=== PATIENT | female | born 1960 | race Caucasian/White ===

== ENCOUNTER 2016-05-26 10:01 | Emergency (ER) | payer MEDICAID ==
[2016-05-26] MEDS ORDERED: LORazepam 0.5 MG Tab ONE (10:24)
[2016-05-26 10:33] VITALS: BP 147/64
--- NOTE | 2016-05-26 10:40 | EDM.PDOC ---
ED HPI GENERAL MEDICAL PROBLEM - General Time Seen by Provider: 05/26/16 10:05 Source of Information: Reports: Patient History Limitations: Reports: No limitations - History of Present Illness INITIAL COMMENTS - FREE TEXT/NARRATIVE: Pt was brought in by ambulance, as she was found outside the house wandering in the cold. Pt has had severe major depression for several years now. she has possible sczioaffective disorder. Mother who is here in the emergency room, who is her animal care service worker, claims that patient has not taken her ativan for the past 5 days now. The reason being, she has run out of the medications, and the pharmacy is not able to refill her medications as her prescription is out of town. Her psychiatrist who prescribes her ativan is from [place], and has been doing this for atleast 10 years that I know of. Pt has been in and out of inpatient psych care. Pt is not in danger of harming herself or other around. No suicidal ideation or threat made. Pt used to get her tramadol for her pain and oxybutrin from who is retired now and has run out of these medications too. She has been having chronic issue wiht maintaining healthy body weight due to her poor eating habits , and mother claims that it is hard to get her to eat anything, which has been struggle for years now. - Related Data Allergies Allergy/AdvReac Type Severity Reaction Status Date / Time lactose Allergy Diarrhea Verified 05/26/16 11:09 Home Meds: Home Meds LORazepam [Ativan] 2 mg PO Q6H 01/16/13 [History] Multivitamin [Multi Vitamin Daily] 1 each PO DAILY 01/16/13 [History] Oxybutynin Chloride [Oxybutynin Chloride ER] 15 mg PO DAILY 01/16/13 [History] Tretinoin [Retin-A] 20 gm TP DAILY 01/16/13 [History] Vit B Cmplx 3/Fa/Vit C/Biotin [Naomi-Zaina Rx Tablet] 1 each PO ACBREAKFAST [History] traMADol [Ultram] 50 tab PO Q4HR 01/16/13 [History] Social & Family History - Alcohol Use Days Per Week of Alcohol Use: 0 - Recreational Drug Use Recreational Drug Use: No - Living Situation & Occupation Living situation: Reports: single, with family (lives with parents) Occupation: unemployed ED ROS GENERAL - Review of Systems Review Of Systems: See Below Constitutional: Reports: weight loss. Denies: fever, chills HEENT: Denies: Ear discharge, Ear pain, Sinus problem, Throat pain Respiratory: Denies: Shortness of Breath, Cough, Sputum, Hemoptysis Cardiovascular: Denies: Chest pain, Lightheadedness GI/Abdominal: Denies: Anorexia, Nausea, Vomiting : Denies: dysuria, pain, urinary retention Musculoskeletal: Denies: neck pain, shoulder pain, joint pain, joint swelling Skin: Denies: jaundice, bruising, pruritis, rash Psychiatric: Reports: Anxiety, Confusion. Denies: Agitation, Depression, Hallucinations, Suicidal ideation Hematologic/Lymphatic: Denies: anemia, easy bleeding ED EXAM, GENERAL - Physical Exam Exam: See Below Exam Limited By: No limitations General Appearance: alert, anxious, cachetic (from chronic malnourishment) Ear Exam: bilateral ear: auricle normal, canal normal, TM normal Nose: normal inspection, normal mucosa, no blood Throat/Mouth: Normal inspection, Normal lips, Normal teeth, Normal gums, Normal oropharynx, Normal voice, No airway compromise Head: atraumatic, normocephalic Neck: normal inspection, supple, non-tender, full range of motion Respiratory/Chest: no respiratory distress, lungs clear, normal breath sounds, no accessory muscle use, chest non-tender Cardiovascular: normal peripheral pulses, regular rate, rhythm, no edema, no gallop, no JVD, no murmur, no rub Peripheral Pulses: 2+: carotid (L), carotid (R), radial (L), radial (R) GI/Abdominal: normal bowel sounds, soft, non tender, no organomegaly, no distention, no abnormal bruit, no mass Neurological: alert, oriented, normal reflexes, no motor/sensory deficits Psychiatric: normal affect, anxious, other (Delusional taughts. No hallucinations. There is flight of taughts and tangential speech) Course - Vital Signs Text/Narrative:: Apparently patient has not taken her ativan for the past 5 days now as her prescription has not been filled. She has been psychotic, with delusion taught. She always has had psychotic behaviour and has been delusional for a long time. Parents do want to take care of her at home. Pt does have chronic cachexia and underweight form her poor eating habit. I have tried to get her on megace to see if that will help with her appetite. Her CMP shows slightly decreased potassium at 3.1, advised bananas and apples. Her CBC shows white count of 16 and her UA show 5 WBC, she does have mild UTI symptoms, hence started her on Cipro 250mg BID for 1 wks. Pt has been resistant to medication changes for a long time. She has trust in her psychiatirst in [place]. Apparently this might not work, if she cannot get the script from him anymore.I have discussed this with her mother during the last visit that they could try who does telemedicine psych care here form the clinic and see if he could be of any help. Last Recorded V/S: Last Vital Signs Temp Pulse 80 05/26/16 10:32 Resp 18 05/26/16 10:32 BP 147/64 H 05/26/16 10:32 Pulse Ox 100 05/26/16 10:32 - Orders/Labs/Meds Labs: Laboratory Tests 05/26/16 05/26/16 05/26/16 Range/Units 10:40 10:40 11:26 WBC 16.3 H D (4.0-11.0) K/uL RBC 3.79 L (3.80-5.80) M/uL Hgb 12.2 (11.5-16.5) g/dL Hct 37.6 (37.0-47.0) % MCV 99 H (76-96) fL MCH 32.2 H (27.0-32.0) pg MCHC 32.4 (31.0-35.0) g/dL RDW 15.2 (11.0-16.0) % Plt Count 604 H* D (150-500) K/uL MPV 9.1 (6.0-10.0) fL Neut % (Auto) 88.9 H (45.0-70.0) % Lymph % (Auto) 8.0 L (20.0-40.0) % [place] % (Auto) 2.9 L (3.0-10.0) % Eos % (Auto) 0.1 L (1.0-5.0) % Baso % (Auto) 0.1 (0.0-0.5) % Neut # 14.49 H (2.00-7.50) K/uL Lymph # 1.30 L (1.50-4.00) K/uL [place] # 0.48 (0.20-0.80) K/uL Eos # 0.01 L (0.04-0.40) K/uL Baso # 0.01 L (0.02-0.10) K/uL Sodium 141 (136-145) mmol/L Potassium 3.1 L D (3.5-5.1) mmol/L Chloride 97 L (98-107) mmol/L Carbon Dioxide 27.2 (21.0-32.0) mmol/L Anion Gap 19.9 H (5.0-15.0) mmol/L BUN 36 H (8-26) mg/dL Creatinine 0.88 (0.55-1.02) mg/dL Est Cr Clr Drug Dosing TNP Estimated GFR (MDRD) > 60 (>60) MLS/MIN BUN/Creatinine Ratio 40.9 H (6-25) Glucose 160 H (74-100) mg/dL Calcium 9.5 (8.5-10.1) mg/dL Total Bilirubin 0.7 D (0.0-1.0) mg/dL AST 19 (15-37) U/L ALT 18 (12-78) U/L Alkaline Phosphatase 107 (46-116) U/L Total Protein 7.7 (6.4-8.2) g/dL Albumin 3.8 (3.4-5.0) g/dL Globulin 3.9 (2.2-4.2) g/dL Albumin/Globulin Ratio 1.0 (0.8-2.0) Urine Color Yellow Urine Appearance Slightly cloudy (CLEAR) Urine pH 6.0 (5.0-8.0) Ur Specific [place] 1.025 (1.003-1.030) Urine Protein 30 H (NEGATIVE) mg/dL Urine Glucose (UA) Negative (NEGATIVE) mg/dL Urine Ketones 40 H (NEGATIVE) mg/dL Urine Occult Blood Moderate H (NEGATIVE) Urine Nitrite Negative (NEGATIVE) Urine Bilirubin Small H (NEGATIVE) Urine Urobilinogen 0.2 (0.2-1.0) E.U./dL Ur Leukocyte Esterase Trace H (NEGATIVE) Urine RBC 5-10 H /HPF Urine WBC 0-5 H /HPF Ur Squamous Epith Cells Few /HPF Urine Bacteria Few /HPF Meds: Medications Discontinued Medications Generic Name Dose Route Start Last Admin Trade Name Timothy PRN Reason Stop Dose Admin Lorazepam Confirm 05/26/16 10:24 05/26/16 10:31 Ativan Administered 05/26/16 10:25 2 mg Dose Administration 2 mg .ROUTE .STK-MED ONE Departure - Departure Time of Disposition: 12:15 Disposition: Home, Self-Care 01 Condition: fair Clinical Impression: Psychosis, paranoid - Problem List & Annotations (1) Anxiety SNOMED Code(s): 06833656 Code(s): F41.9 - ANXIETY DISORDER, UNSPECIFIED Status: Acute Current Visit: No (2) Psychosis, paranoid SNOMED Code(s): 840927264 Code(s): F22 - DELUSIONAL DISORDERS Status: Acute Current Visit: Yes - Problem List Review Problem List Initiated/Reviewed/Updated: Yes - Assessment/Plan Assessment:: Psychosis Plan: Apparently patient has not taken her ativan for the past 5 days now as her prescription has not been filled. She has been psychotic, with delusion taught. She always has had psychotic behaviour and has been delusional for a long time. Parents do want to take care of her at home. Pt does have chronic cachexia and underweight form her poor eating habit. I have tried to get her on megace to see if that will help with her appetite. Her CMP shows slightly decreased potassium at 3.1, advised bananas and apples. Her CBC shows white count of 16 and her UA show 5 WBC, she does have mild UTI symptoms, hence started her on Cipro 250mg BID for 1 wks.Also I have refilled her ativan 2mg q 6 hrs for her for 1 month. Pt has been resistant to medication changes for a long time. She has trust in her psychiatirst in [place]. Apparently this might not work, if she cannot get the script from him anymore.I have discussed this with her mother during the last visit that they could try who does telemedicine psych care here form the clinic and see if he could be of any help.
== END 2016-05-26 12:30 | disposition home or self-care (01) ==
LOC: LB.ED 10:01
DX: F22 Delusional disorders (principal); Z91.09 Other allergy status, other than to drugs and biological substances; Z79.899 Other long term (current) drug therapy
CPT/HCPCS: 36415; 80053; 81001; 85025; 99283; 99285; A9270

== ENCOUNTER 2016-05-27 10:00 | Emergency (ER) | payer MEDICAID ==
--- NOTE | 2016-05-27 11:21 | EDM.PDOC ---
ED HPI GENERAL MEDICAL PROBLEM - General Stated Complaint: STOMACHE PAIN Time Seen by Provider: 05/27/16 10:35 Source of Information: Reports: Patient History Limitations: Reports: No limitations - History of Present Illness INITIAL COMMENTS - FREE TEXT/NARRATIVE: Pt was just seen yesterday in the emergency room. She was discharged home on megace for her anorexia and refilled her ativan for her anxiety with psychosis. Pt is here today as she has been having abdominal pain since last night. She claims it cramps all over the abdomen. and her rectum hurts. No weakness. no fever or chills. No nausea or vomiting. No abdominal bloating. Mother called ambulance as she was complaining of abdominal pain and cramps. Pt brought by ambulance into the emergency room. Vitals are stable at this time. - Related Data Allergies Allergy/AdvReac Type Severity Reaction Status Date / Time lactose Allergy Diarrhea Verified 05/26/16 11:09 Home Meds: Home Meds LORazepam [Ativan] 2 mg PO Q6H 01/16/13 [History] Multivitamin [Multi Vitamin Daily] 1 each PO DAILY 01/16/13 [History] Oxybutynin Chloride [Oxybutynin Chloride ER] 15 mg PO DAILY 01/16/13 [History] Tretinoin [Retin-A] 20 gm TP DAILY 01/16/13 [History] Vit B Cmplx 3/Fa/Vit C/Biotin [Naomi-Zaina Rx Tablet] 1 each PO ACBREAKFAST [History] traMADol [Ultram] 50 tab PO Q4HR 01/16/13 [History] Social & Family History - Alcohol Use Days Per Week of Alcohol Use: 0 - Recreational Drug Use Recreational Drug Use: No - Living Situation & Occupation Living situation: Reports: single, with family (lives with parents) Occupation: unemployed ED ROS GENERAL - Review of Systems Review Of Systems: See Below Constitutional: Denies: fever, chills, weakness HEENT: Denies: Rhinitis, Throat pain, Throat swelling Respiratory: Denies: Shortness of Breath, Cough, Sputum Cardiovascular: Denies: Chest pain, Lightheadedness GI/Abdominal: Reports: Abdominal pain. Denies: Nausea, Vomiting : Denies: discharge, dysuria Musculoskeletal: Denies: joint pain, joint swelling Skin: Denies: pruritis, rash Neurological: Reports: Weakness. Denies: Dizziness, Headache Psychiatric: Reports: Agitation, Anxiety, Other (there is delusional and paronia ). Denies: Homicidal ideation, Suicidal ideation ED EXAM, GENERAL - Physical Exam Exam: See Below Exam Limited By: No limitations General Appearance: alert, WD/WN, no apparent distress, other (agitated) Eye Exam: bilateral eye: EOMI, PERRL Ears: normal external exam, normal canal, hearing grossly normal, normal TMs Ear Exam: bilateral ear: auricle normal, canal normal, TM normal Nose: normal inspection, normal mucosa, no blood Throat/Mouth: Normal inspection, Normal lips, Normal teeth, Normal gums, Normal oropharynx, Normal voice, No airway compromise Head: atraumatic, normocephalic Neck: normal inspection, supple, non-tender, full range of motion Respiratory/Chest: no respiratory distress, lungs clear, normal breath sounds, no accessory muscle use, chest non-tender Cardiovascular: normal peripheral pulses, regular rate, rhythm, no edema, no gallop, no JVD, no murmur, no rub GI/Abdominal: normal bowel sounds, soft, no organomegaly, no distention, no abnormal bruit, no mass, tender (Tender all over abdomen. With calming patient down, When I exam most of the tenderness over the abdomen has resolved.) Extremities: normal inspection, normal range of motion, non-tender, normal capillary refill, no pedal edema Neurological: alert, oriented, CN II-XII intact, normal cognition, normal gait, normal reflexes, no motor/sensory deficits Psychiatric: normal affect, anxious Skin Exam: Warm, Intact Course - Vital Signs Text/Narrative:: I have examined patient, clinical exam is normal. She does have her psychosis and paranoid behaviour. Suspicious about every one around, which has not been new with this patient. She has had abdominal pain and cramps on and off for a long time. She has been on tramadol for the same reason , which was started by Dr. Ugalde. Apparently pt and her mother are concerned that there is some thing going on in her abdomen. Hence I did agree and get CT scan of abdomen and pelvis done today. No acute pathology seen other than significant stool impaction in the rectum. hence rectal exam wa done and and at the same time the ball of stool digitally evacuated until soft stool was reached and then soap liv enema was given to clear up the rest of the stools.. I have started her on megace, for her anorexia, which she needs to apple picker from the pharmacy today. Also she has this nonspecific abdominal cramps which might be secondary to her poor eating habits or from severe anorexia and weight loss. We di talk to both patient and her mother about the appointment with Dr. Anderson coming up. Pt wants to see her Psychiatrist in [place] , which with her condition is not a possibility either. Pt was just seen yesterday. Advised to continue her present med regime and also , I have given her tramadol script for next 10 days, at which point she will be able to refill her tramadol through her insurance. Things that have not been corrected for so long as far as her mental illness is concerned, I do think there is not much to offer. I have discussed with her mother that she probably needs to start looking for all the resources available in the county and also friends. She might need inpatient placement. Mother does not feel ready for this. I have called in the hospital social service to see if they could get some resource and help. Last Recorded V/S: Last Vital Signs Temp 97.6 F 05/27/16 11:35 Pulse 98 05/27/16 11:35 Resp 18 05/27/16 11:35 BP 117/71 05/27/16 11:35 Pulse Ox 100 05/27/16 11:35 - Orders/Labs/Meds Orders: Active Orders 24 hr Category Date Time Status Abdomen Pelvis wo Cont [CT] Stat Exams 05/27/16 11:17 Taken Departure - Departure Time of Disposition: 14:45 Disposition: Home, Self-Care 01 Clinical Impression: Anxiety, Psychosis, paranoid, Fecal impaction in rectum Referrals: PCP,None [Primary Care Provider] - - Problem List & Annotations (1) Fecal impaction in rectum SNOMED Code(s): 65460471 Code(s): K56.41 - FECAL IMPACTION Status: Acute Current Visit: Yes (2) Psychosis, paranoid SNOMED Code(s): 000484698 Code(s): F22 - DELUSIONAL DISORDERS Status: Acute Current Visit: Yes - Problem List Review Problem List Initiated/Reviewed/Updated: Yes - My Orders Last 24 Hours: My Active Orders 05/27/16 11:17 Abdomen Pelvis wo Cont [CT] Stat - Assessment/Plan Last 24 Hours: My Active Orders 05/27/16 11:17 Abdomen Pelvis wo Cont [CT] Stat Assessment:: Psychosis with rectal stool impaction Plan: I have examined patient, clinical exam is normal. She does have her psychosis and paranoid behaviour. Suspicious about every one around, which has not been new with this patient. She has had abdominal pain and cramps on and off for a long time. She has been on tramadol for the same reason , which was started by Dr. Ugalde. Apparently pt and her mother are concerned that there is some thing going on in her abdomen. Hence I did agree and get CT scan of abdomen and pelvis done today. No acute pathology seen other than significant stool impaction in the rectum. hence rectal exam wa done and and at the same time the ball of stool digitally evacuated until soft stool was reached and then soap liv enema was given to clear up the rest of the stools.Did educate on high fibre diet and healthy eting habits. Could try colace for stool softner and get into habit of defecating every day. I have started her on megace, for her anorexia, which she needs to apple picker from the pharmacy today. Also she has this nonspecific abdominal cramps which might be secondary to her poor eating habits or from severe anorexia and weight loss. We di talk to both patient and her mother about the appointment with Dr. Anderson coming up. Pt wants to see her Psychiatrist in [place] , which with her condition is not a possibility either. Pt was just seen yesterday. Advised to continue her present med regime and also , I have given her tramadol script for next 10 days, at which point she will be able to refill her tramadol through her insurance. Things that have not been corrected for so long as far as her mental illness is concerned, I do think there is not much to offer. I have discussed with her mother that she probably needs to start looking for all the resources available in the county and also friends. She might need inpatient placement. Mother does not feel ready for this. I have called in the hospital social service to see if they could get some resource and help.
[2016-05-27 11:39] VITALS: BP 117/71
--- NOTE | 2016-05-28 09:20 | CT ---
DATE OF SERVICE: 05/27/2016 CLINICAL DATA: Abdominal pain. UNENHANCED ABDOMEN AND PELVIC CT Multislice acquisition through the abdomen and pelvis without IV or oral contrast was performed. No priors. There are emphysematous changes in both lower lungs. The lung bases are otherwise clear. The unenhanced liver appears normal. No focal hepatic lesions. The gallbladder appears normal. The spleen appears normal. The pancreas appears normal. The right and left adrenals appear normal. There are nonobstructing renal calculi bilaterally. The kidneys otherwise appear normal. No hydronephrosis or hydroureter. The bladder is partially fluid filled and appears normal. The appendix is not seen. No definite evidence for appendicitis. There is a large amount of gas and stool present throughout the colon. There is a massive amount of stool noted within the rectum consistent with constipation. No free air. No free fluid. No dilated loops of bowel. No adenopathy. No aortic aneurysm. [id number] [facility]
== END 2016-05-27 14:35 | disposition home or self-care (01) ==
LOC: LB.ED 10:00
DX: K56.41 Fecal impaction (principal); F41.9 Anxiety disorder, unspecified; F22 Delusional disorders; Z91.011 Allergy to milk products; Z91.018 Allergy to other foods; Z79.899 Other long term (current) drug therapy
CPT/HCPCS: 74176; 99283; 99284-25